=== PATIENT | male | born 1950 | race African-American/Black ===

== ENCOUNTER 2017-09-15 00:13 | Emergency (ER) | payer MEDICARE ==
[~2017-09-15] VITALS: Ht 182.9 cm; Wt 70.0 kg
[2017-09-15 01:20] LABS: CLARITY URINE TURBID (CLEAR); KETONES URINE 2+ (NEGATIVE); LEUKOCYTE ESTERASE URINE 3+ (NEGATIVE); NITRITE URINE POSITIVE (NEGATIVE); OCCULT BLOOD URINE 3+ (NEGATIVE); PROTEIN URINE 3+ (NEGATIVE); SPECIFIC GRAVITY URINE 1.024 (1.005-1.030)
[2017-09-15 01:21] LABS: COLOR URINE BLOODY (YELLOW)
[2017-09-15 03:09] LABS: HEMATOCRIT. 40.9 % (42.0-52.0); HEMOGLOBIN. 13.9 g/dL (14.0-18.0); MEAN CORPUSCULAR HEMOGLOBIN 30.1 pg (28.0-32.0); MEAN CORPUSCULAR VOLUME 88.7 fL (80.0-94.0); PLATELET 199 x1000/uL (130-400); RED BLOOD CELL COUNT 4.61 mill/uL (4.7-6.1); RED CELL DISTRIBUTION WIDTH 13.8 % (11.6-14.6)
[2017-09-15 03:13] LABS: CHLORIDE 100 mEq/L (98-107)
[2017-09-15 05:19] VITALS: BP 154/80
[2017-09-15 06:29] LABS: PLATELET ESTIMATE NORMAL
== END 2017-09-15 05:21 | disposition home or self-care (01) ==
LOC: ER 00:13
DX: N30.90 Cystitis, unspecified without hematuria (principal); I10 Essential (primary) hypertension; F17.200 Nicotine dependence, unspecified, uncomplicated
CPT/HCPCS: 36415; 80048; 81003; 85025; 87077; 87086; 87186; 99284